=== PATIENT | female | born 1985 ===

== ENCOUNTER → 2020-04-03 | Outpatient (CLI) | payer OTHER ==
[~2020-04-03] MED LIST: IBU600 MG PO; MEDROL 4MG DOSPA4 MG PO; PERCOCET 325 MG1 TA2 PO; PRENATAL TABLET PO; SENEXON-S 50-81 EACH PO
== END | disposition still patient (30) ==
LOC: ZCOL.LAB 08:00
DX: Z20.828 Contact with and (suspected) exposure to other viral communicable diseases (principal)

== ENCOUNTER 2020-04-04 02:47 | Inpatient (IN) | payer OTHER ==
[2020-04-04] VITALS (50 sets, daily range): BP systolic 86–131; BP diastolic 51–72; PULSE 60–120; TEMP 97.8–99.7
[~2020-04-04] VITALS: Ht 162.6 cm; Wt 73.6 kg
--- NOTE | 2020-04-04 02:55 | NUR ---
0255 - PT. TO OUR UNIT WITH BY HER SIDE. ORIENTATED TO ROOM AND CHANGED INTO CLEAN GOWN. REPORTS GFM, NO LOF AND SOME BLOODY SHOW. REPORTS CONTRACTIONS THAT ARE PAINFUL AND SOME BLOODY SHOW IS WHY THEY CAME IN. 0305- EFM AND TOCO ON AND TRACING. VITALS TAKEN, ASSESSMENT COMPLETED. 0315-SVE 3-80/-2. DISCUSSED WATCHING FOR 1 HOUR AND THEN REASSESSING TO SEE IF NEEDING TO ADMIT OR NOT. 0420- SVE /-1. ADMITTED, CONSENTS SIGNED, IV STARTED AND FLUIDS RUNNING.
[2020-04-04] MEDS ORDERED: PRENATAL TABLET PO (03:21)
[2020-04-04] MEDS ORDERED: MEDROL 4MG DOSPA4 MG PO (03:22)
[2020-04-04 05:36] LABS: BASO % 0.2 % (0.0-2.0); EOS % 0.2 % (0-4.0); GRAN % 79.7 % (42.2-75.2); HEMATOCRIT 39.5 % (37.0-47.0); HEMOGLOBIN 13.2 g/dl (12.5-16.0); LYMPH # 1.3 (1.2-3.4); LYMPH % 14.2 % (20.0-51.0); MEAN CELL VOLUME 92 fl (80.0-100.0); MEAN CORPUSCULAR HEMOGLOBIN 31 pg (27.0-31.0); MEAN CORPUSCULAR HGB CONC 33 g/dl (33.0-37.0); MONO # 0.4 (0.1-0.6); PLATELET COUNT 108 K/mm3 (130-400); RED BLOOD COUNT 4.29 M/mm3 (4.10-5.30); REDCELL DISTRIBUTION WIDTH-CV 13.3 % (11.5-14.5)
--- NOTE | 2020-04-04 06:30 | NUR ---
0630- Bedside report received from Uche Staley RN. 0640- Sofia Barboza CRNA at bedside. Time out performed. Patient assisted to edge of bed for epidural placement. FHR tracing intermittently due to maternal position. RN remains at bedside adj. EFM. 0645- Single shot and epidural placed by Sofia Barboza CRNA. See anesthesia record. 0655- Patient repositioned wedge left. EFM adjusted. Plan of care and safety precautions reviewed with patient and family who verbalize understanding.
--- NOTE | 2020-04-04 08:55 | NUR ---
Dr. Turcios at bedside and assessing patient and FHR strip. Plan of care discussed and questions answered. Physician orders to take steroid tablet and patient takes at this time. 0856: SVE-8/100/0 and AROM at this time with clear fluid noted. Patient updated on plan of care.
--- NOTE | 2020-04-04 12:36 | NUR ---
1236- SVE per Dr. Turcios C/+1. FHR decel noted to 90's and lasting 60 seconds. Patient right lateral. RN to beging pushing with patient in [address] Turcios. 1305- Catheter removed. Patient instructed on pushing with contractions. Begins to push with contractions. Minimal decent noted with pushing. 1325- Tug of war pushing with RN at bedside. Strong maternal effort noted. Minimal decent noted. RN remains at bedside pushing with patient. Dr. Turcios on unit and updated on patient. 1405- Patient left lateral to push. 1420- Dr. Turcios at bedside to evaluate pushing efforts. Fetus noted to be OP per Dr. Turcios. RN to reposition patient to facilitate head rotation. Patient to labor down x30min. 1425- Left and right side lying release. 1440- Patient right lateral with left leg in footplates. Plan of care reviewed with patient who verbalizes understanding. Resting with call light within reach.
--- NOTE | 2020-04-04 15:10 | NUR ---
1510- Pushing resumed with RN at bedside. Strong maternal effort noted. 1515- Straight cath for 100ml clear yellow urine. 1528- Dr. Turcios at bedside to evaluate pushing efforts. Patient pushing with Dr. Turcios at bedside. 1531- Dr. Turcios remains at bedside and discusses VAVD. 1541- Patient repositioned in footplates. Nursery RN, and this RN at bedside. Vacuum applied to occiput of head by Dr. Turcios. 1543- Patient continues to push with contractions as traction applied to vertex via vacuum by Dr. Turcios. decent noted. 1551- Patient continues to push with contractions with traction applied to vertex via vacuum by Dr. Turcios Pop off. Vacuum reapplied by Dr. Turcios. 1552- Pop off. Vaccuum reapplied by Dr. Turcios. Patient continues to push with contractions as traction applied to vertex by Dr. Turcios. 1554- Pop off. Vacuum reapplied by Dr. Turcios. Patient continues to push with contractions as tractionapplied to vertex by Dr. Turcios. 1555- Pop off. Patient continues to push with contractions. Strong maternal effort noted. 1556- MLE by Dr. Turcios. 1604- VAVD delivery at this time of viable femal . To mother's chest where dried and stimulated by Oneil Hyatt RN who assumes care of patient at this time. Cord clampec x2 and cut. Cord gases collected by Dr. Turcios. 1608- Spontaneous and intact delivery of placenta. Pitocin started at 333ml/hr per protocol. 2nd degree MLE repaired by Dr. Turcios. 1610- Fundus firm, midline, and bleeding within normal limits. Karina care provided and patient repositioned in bed. Pads changed and ice pack to perineum. Plan of care and safety precautions reviewed with patient and family who verbalize understanding. See doctor dictation, anesthesia record, and nurses notes.
--- NOTE | 2020-04-04 19:10 | NUR ---
1909 EPID CATH REMOVED. UP TO BR WITH ASSIST AND UNABLE TO VOID. PERICARE DONE. TO ROOM 219 PER W/C. ORIENTED TOROOM. LIONEL MOVE WELL.
[2020-04-05 04:00] VITALS: BP 98/62; PULSE 91; TEMP 98.6
[2020-04-05 07:30] VITALS: BP 102/53; PULSE 96; TEMP 97.8
[2020-04-05 07:32] LABS: MEAN CELL VOLUME 96 fl (80.0-100.0); MEAN CORPUSCULAR HGB CONC 33 g/dl (33.0-37.0); MEAN PLATELET VOLUME 13.6 fl (7.4-10.4); PLATELET COUNT 92 K/mm3 (130-400); RED BLOOD COUNT 3.39 M/mm3 (4.10-5.30); REDCELL DISTRIBUTION WIDTH-CV 13.4 % (11.5-14.5)
[2020-04-05 07:35] LABS: HEMATOCRIT 32.4 % (37.0-47.0); HEMOGLOBIN 10.6 g/dl (12.5-16.0); MEAN CORPUSCULAR HEMOGLOBIN 31 pg (27.0-31.0)
[2020-04-05 12:30] VITALS: BP 104/64; PULSE 102; TEMP 97.8
[2020-04-05 16:30] VITALS: BP 105/69; PULSE 96; TEMP 98.5
[2020-04-05 21:50] VITALS: BP 107/72; PULSE 97; TEMP 97.9
[2020-04-06 06:30] VITALS: BP 111/71; PULSE 99; TEMP 98
[2020-04-06 07:19] LABS: HEMOGLOBIN 11.1 g/dl (12.5-16.0); MEAN CELL VOLUME 96 fl (80.0-100.0); MEAN CORPUSCULAR HEMOGLOBIN 32 pg (27.0-31.0); MEAN CORPUSCULAR HGB CONC 33 g/dl (33.0-37.0); MEAN PLATELET VOLUME 13.7 fl (7.4-10.4); PLATELET COUNT 116 K/mm3 (130-400); RED BLOOD COUNT 3.51 M/mm3 (4.10-5.30); REDCELL DISTRIBUTION WIDTH-CV 13.5 % (11.5-14.5)
[2020-04-06 07:36] LABS: HEMATOCRIT 33.6 % (37.0-47.0)
[2020-04-06 08:43] LABS: BAND 2 % (0-10); LYMPHOCYTE 12 % (20.0-51.0); NEUTROPHILS 82 % (42.0-75.2); PLATELET ESTIMATE NORMAL (NORMAL)
[2020-04-06] MEDS ORDERED: IBU600 MG PO (09:14)
[2020-04-06] MEDS ORDERED: PERCOCET 325 MG1 TA2 PO (09:15)
[2020-04-06] MEDS ORDERED: SENEXON-S 50-81 EACH PO (09:15)
== END 2020-04-06 13:00 | disposition home or self-care (01) | DRG 807 ==
LOC: LDRO 02:47 → OB 04:25 → LDR 04:25 → OB 19:30
PROVIDERS: Obstetrics & Gynecology; ADMIT Obstetrics & Gynecology
PROC: 10D07Z6 Extraction of Products of Conception, Vacuum, Via Natural or Artificial Opening (ICD-10-PCS; principal; 2020-04-04)
PROC: 0KQM0ZZ Repair Perineum Muscle, Open Approach (ICD-10-PCS; 2020-04-04)
PROC: 0W8NXZZ Division of Female Perineum, External Approach (ICD-10-PCS; 2020-04-04)
DX: O99.12 Other diseases of the blood and blood-forming organs and certain disorders involving the immune mechanism complicating childbirth (principal); Z37.0 Single live birth; D69.6 Thrombocytopenia, unspecified; O70.1 Second degree perineal laceration during delivery; O62.1 Secondary uterine inertia; O32.9XX0 Maternal care for malpresentation of fetus, unspecified, not applicable or unspecified; Z3A.39 39 weeks gestation of pregnancy; Z79.52 Long term (current) use of systemic steroids
CPT/HCPCS: J2590; J2795; J7120

== ENCOUNTER 2020-04-09 02:31 | Emergency (ER) | payer OTHER ==
[~2020-04-09] VITALS: Ht 165 cm; Wt 72.0 kg
[2020-04-09 02:41] VITALS: BP 111/71; PULSE 110; TEMP 98
[2020-04-09 03:20] LABS: BASO % 0.3 % (0.0-2.0); EOS # 0.2 (0.0-0.7); EOS % 1.7 % (0-4.0); GRAN # 9.4 (1.4-6.5); GRAN % 83.3 % (42.2-75.2); HEMOGLOBIN 11.5 g/dl (12.5-16.0); LYMPH # 0.9 (1.2-3.4); MEAN CELL VOLUME 94 fl (80.0-100.0); MEAN CORPUSCULAR HEMOGLOBIN 31 pg (27.0-31.0); MEAN CORPUSCULAR HGB CONC 33 g/dl (33.0-37.0); MEAN PLATELET VOLUME 11.4 fl (7.4-10.4); MONO # 0.7 (0.1-0.6); PLATELET COUNT 184 K/mm3 (130-400); RED BLOOD COUNT 3.74 M/mm3 (4.10-5.30); REDCELL DISTRIBUTION WIDTH-CV 13.1 % (11.5-14.5)
[2020-04-09 03:31] LABS: ALBUMIN 3.8 gm/dL (3.5-5.0); BILIRUBIN,TOTAL 0.4 mg/dL (0.0-1.0); CALCIUM 9.4 mg/dL (8.4-10.2); CREATININE, serum 0.55 (0.52-1.25)
[2020-04-09 05:19] LABS: PROTHROMBIN TIME 10.8 SECONDS (9.7-12.8)
[2020-04-09 05:21] LABS: PARTIAL THROMBOPLASTIN TIME 26.7 SECONDS (26.0-37.0)
== END 2020-04-09 05:20 | disposition home or self-care (01) ==
LOC: COL.ER 02:31
PROVIDERS: Emergency Medicine
DX: O72.1 Other immediate postpartum hemorrhage (principal); Z79.1 Long term (current) use of non-steroidal anti-inflammatories (NSAID)